=== PATIENT | female | born 1945 | race Caucasian/White ===

== ENCOUNTER 2017-06-03 18:34 | Outpatient (CLI) | payer MEDICARE | END 2017-06-03 18:35 | disposition short-term general hospital (02) | LOC: EMS 18:34 | PROVIDERS: ATTEND Surgery | DX: R07.89 Other chest pain (principal); R68.84 Jaw pain | CPT/HCPCS: A0170; A0425; A0427 ==

== ENCOUNTER 2017-09-16 08:00 | Outpatient (CLI) | payer MEDICARE | END 2017-09-16 08:01 | disposition home or self-care (01) | LOC: LAB.F 08:00 | PROVIDERS: ATTEND Nurse Practitioner Family | DX: I48.91 Unspecified atrial fibrillation (principal) | CPT/HCPCS: 85610 ==

== ENCOUNTER 2017-09-23 11:19 | Outpatient (CLI) | payer MEDICARE | END 2017-09-23 11:20 | disposition home or self-care (01) | LOC: LAB.F 11:19 | PROVIDERS: ATTEND Nurse Practitioner Family | DX: I48.91 Unspecified atrial fibrillation (principal) | CPT/HCPCS: 85610 ==

== ENCOUNTER 2017-09-30 09:23 | Outpatient (CLI) | payer MEDICARE | END 2017-09-30 09:24 | disposition home or self-care (01) | LOC: LAB.F 09:23 | PROVIDERS: ATTEND Nurse Practitioner Family | DX: I48.91 Unspecified atrial fibrillation (principal) | CPT/HCPCS: 85610 ==

== ENCOUNTER 2017-10-02 10:50 | Outpatient (CLI) | payer MEDICARE | END 2017-10-02 10:51 | disposition home or self-care (01) | LOC: LAB.F 10:50 | PROVIDERS: ATTEND Nurse Practitioner Family | DX: I48.91 Unspecified atrial fibrillation (principal) | CPT/HCPCS: 85610 ==

== ENCOUNTER 2017-10-13 08:00 | Outpatient (CLI) | payer MEDICARE | END 2017-10-13 08:01 | disposition home or self-care (01) | LOC: LAB.F 08:00 | PROVIDERS: ATTEND Internal Medicine | DX: I48.91 Unspecified atrial fibrillation (principal) | CPT/HCPCS: 85610 ==

== ENCOUNTER 2017-10-29 09:40 | Outpatient (CLI) | payer MEDICARE | END 2017-10-29 09:41 | disposition home or self-care (01) | LOC: LAB.F 09:40 | PROVIDERS: ATTEND Physician Assistant Medical | DX: I48.91 Unspecified atrial fibrillation (principal) | CPT/HCPCS: 85610 ==

== ENCOUNTER 2017-11-04 12:24 | Outpatient (CLI) | payer MEDICARE | END 2017-11-04 12:25 | disposition home or self-care (01) | LOC: LAB.F 12:24 | PROVIDERS: ATTEND Nurse Practitioner Family | DX: I48.91 Unspecified atrial fibrillation (principal) | CPT/HCPCS: 85610 ==

== ENCOUNTER 2017-11-07 14:22 | Outpatient (CLI) | payer MEDICARE | END 2017-11-07 14:23 | disposition home or self-care (01) | LOC: LAB.F 14:22 | PROVIDERS: ATTEND Nurse Practitioner Family | DX: I48.91 Unspecified atrial fibrillation (principal) | CPT/HCPCS: 85610 ==

== ENCOUNTER 2017-11-12 10:14 | Outpatient (CLI) | payer MEDICARE | END 2017-11-12 10:15 | disposition home or self-care (01) | LOC: LAB.F 10:14 | PROVIDERS: ATTEND Nurse Practitioner Family | DX: I48.91 Unspecified atrial fibrillation (principal) | CPT/HCPCS: 85610 ==

== ENCOUNTER 2017-11-20 11:26 | Outpatient (CLI) | payer MEDICARE | END 2017-11-20 11:27 | disposition home or self-care (01) | LOC: LAB.F 11:26 | PROVIDERS: ATTEND Nurse Practitioner Family | DX: I48.91 Unspecified atrial fibrillation (principal) | CPT/HCPCS: 85610 ==

== ENCOUNTER 2017-11-28 09:21 | Outpatient (CLI) | payer MEDICARE | END 2017-11-28 09:22 | disposition home or self-care (01) | LOC: LAB.F 09:21 | PROVIDERS: ATTEND Nurse Practitioner Family | DX: I48.91 Unspecified atrial fibrillation (principal) | CPT/HCPCS: 85610 ==

== ENCOUNTER 2017-12-05 11:13 | Outpatient (CLI) | payer MEDICARE | END 2017-12-05 11:14 | disposition home or self-care (01) | LOC: LAB.F 11:13 | PROVIDERS: ATTEND Nurse Practitioner Family | DX: I48.91 Unspecified atrial fibrillation (principal) | CPT/HCPCS: 85610 ==

== ENCOUNTER 2017-12-15 10:20 | Outpatient (CLI) | payer MEDICARE | END 2017-12-15 10:21 | disposition home or self-care (01) | LOC: LAB.F 10:20 | PROVIDERS: ATTEND Nurse Practitioner Family | DX: I48.91 Unspecified atrial fibrillation (principal) | CPT/HCPCS: 85610 ==

== ENCOUNTER 2017-12-24 09:50 | Outpatient (CLI) | payer MEDICARE | END 2017-12-24 09:51 | disposition home or self-care (01) | LOC: LAB.F 09:50 | PROVIDERS: ATTEND Nurse Practitioner Family | DX: I48.91 Unspecified atrial fibrillation (principal) | CPT/HCPCS: 85610 ==

== ENCOUNTER 2018-01-16 09:26 | Outpatient (CLI) | payer MEDICARE | END 2018-01-16 09:27 | disposition home or self-care (01) | LOC: LAB.F 09:26 | PROVIDERS: ATTEND Nurse Practitioner Family | DX: I48.91 Unspecified atrial fibrillation (principal) | CPT/HCPCS: 85610 ==

== ENCOUNTER 2018-02-09 11:18 | Outpatient (CLI) | payer MEDICARE | END 2018-02-09 11:19 | disposition home or self-care (01) | LOC: LAB.F 11:18 | PROVIDERS: ATTEND Nurse Practitioner Family | DX: I48.91 Unspecified atrial fibrillation (principal) | CPT/HCPCS: 85610 ==

== ENCOUNTER 2018-02-27 10:36 | Outpatient (CLI) | payer MEDICARE | END 2018-02-27 10:37 | disposition home or self-care (01) | LOC: LAB.F 10:36 | PROVIDERS: ATTEND Nurse Practitioner Family | DX: I48.91 Unspecified atrial fibrillation (principal) | CPT/HCPCS: 85610 ==

== ENCOUNTER 2018-03-23 10:58 | Outpatient (CLI) | payer MEDICARE | END 2018-03-23 10:59 | disposition home or self-care (01) | LOC: LAB.F 10:58 | PROVIDERS: ATTEND Nurse Practitioner Family | DX: I48.91 Unspecified atrial fibrillation (principal) | CPT/HCPCS: 85610 ==

== ENCOUNTER 2018-04-09 10:53 | Outpatient (CLI) | payer MEDICARE | END 2018-04-09 10:54 | disposition home or self-care (01) | LOC: LAB.F 10:53 | PROVIDERS: ATTEND Nurse Practitioner Family | DX: I48.91 Unspecified atrial fibrillation (principal) | CPT/HCPCS: 85610 ==

== ENCOUNTER 2018-05-11 11:57 | Outpatient (CLI) | payer MEDICARE | END 2018-05-11 11:58 | disposition home or self-care (01) | LOC: LAB.F 11:57 | PROVIDERS: ATTEND Nurse Practitioner Family | DX: I48.91 Unspecified atrial fibrillation (principal) | CPT/HCPCS: 85610 ==

== ENCOUNTER 2018-06-02 14:42 | Outpatient (CLI) | payer MEDICARE | END 2018-06-02 14:43 | disposition home or self-care (01) | LOC: LAB.F 14:42 | PROVIDERS: ATTEND Nurse Practitioner Family | DX: I48.91 Unspecified atrial fibrillation (principal) | CPT/HCPCS: 85610 ==

== ENCOUNTER 2018-06-30 08:00 | Outpatient (CLI) | payer MEDICARE | END 2018-06-30 23:59 | disposition home or self-care (01) | LOC: LAB.F 08:00 | PROVIDERS: ATTEND Nurse Practitioner Family | DX: I48.91 Unspecified atrial fibrillation (principal) | CPT/HCPCS: 85610 ==

== ENCOUNTER 2018-07-31 10:42 | Outpatient (CLI) | payer MEDICARE | END 2018-07-31 10:43 | disposition home or self-care (01) | LOC: LAB.F 10:42 | PROVIDERS: ATTEND Nurse Practitioner Family | DX: I48.91 Unspecified atrial fibrillation (principal) | CPT/HCPCS: 85610 ==

== ENCOUNTER 2018-08-28 10:50 | Outpatient (CLI) | payer MEDICARE | END 2018-08-28 10:51 | disposition home or self-care (01) | LOC: LAB.F 10:50 | PROVIDERS: ATTEND Nurse Practitioner Family | DX: I48.91 Unspecified atrial fibrillation (principal) | CPT/HCPCS: 85610 ==

== ENCOUNTER 2018-09-17 09:05 | Outpatient (CLI) | payer MEDICARE | END 2018-09-17 09:06 | disposition home or self-care (01) | LOC: LAB.F 09:05 | PROVIDERS: ATTEND Nurse Practitioner Family | DX: I48.91 Unspecified atrial fibrillation (principal) | CPT/HCPCS: 85610 ==

== ENCOUNTER 2018-10-08 12:10 | Outpatient (CLI) | payer MEDICARE | END 2018-10-08 23:59 | disposition home or self-care (01) | LOC: LAB.F 12:10 | PROVIDERS: ATTEND Nurse Practitioner Family | DX: I48.91 Unspecified atrial fibrillation (principal) | CPT/HCPCS: 85610 ==

== ENCOUNTER 2018-11-10 12:28 | Outpatient (CLI) | payer MEDICARE | END 2018-11-10 23:59 | disposition home or self-care (01) | LOC: LAB.F 12:28 | PROVIDERS: ATTEND Physician Assistant Medical | DX: I48.91 Unspecified atrial fibrillation (principal) | CPT/HCPCS: 85610 ==

== ENCOUNTER 2018-12-10 10:54 | Outpatient (CLI) | payer MEDICARE | END 2018-12-10 10:55 | disposition home or self-care (01) | LOC: LAB.F 10:54 | PROVIDERS: ATTEND Nurse Practitioner Family | DX: I48.91 Unspecified atrial fibrillation (principal) | CPT/HCPCS: 85610 ==

== ENCOUNTER 2018-12-24 12:09 | Outpatient (CLI) | payer MEDICARE | END 2018-12-24 12:10 | disposition home or self-care (01) | LOC: LAB.S 12:09 | PROVIDERS: ATTEND Internal Medicine | DX: I48.91 Unspecified atrial fibrillation (principal) | CPT/HCPCS: 85610 ==

== ENCOUNTER 2019-01-26 12:02 | Outpatient (CLI) | payer MEDICARE | END 2019-01-26 12:03 | disposition home or self-care (01) | LOC: LAB.S 12:02 | PROVIDERS: ATTEND Nurse Practitioner Family | DX: I48.91 Unspecified atrial fibrillation (principal) | CPT/HCPCS: 85610 ==

== ENCOUNTER 2019-02-09 13:13 | Outpatient (CLI) | payer MEDICARE | END 2019-02-09 13:14 | disposition home or self-care (01) | LOC: LAB.S 13:13 | PROVIDERS: ATTEND Nurse Practitioner Family | DX: I48.91 Unspecified atrial fibrillation (principal) | CPT/HCPCS: 85610 ==

== ENCOUNTER 2019-03-12 13:23 | Outpatient (CLI) | payer MEDICARE | END 2019-03-12 13:24 | disposition home or self-care (01) | LOC: LAB.S 13:23 | PROVIDERS: ATTEND Nurse Practitioner Family | DX: I48.91 Unspecified atrial fibrillation (principal) | CPT/HCPCS: 85610 ==

== ENCOUNTER 2019-03-26 13:28 | Outpatient (CLI) | payer MEDICARE | END 2019-03-26 13:29 | disposition home or self-care (01) | LOC: LAB.S 13:28 | PROVIDERS: ATTEND Nurse Practitioner Family | DX: I48.91 Unspecified atrial fibrillation (principal) | CPT/HCPCS: 85610 ==

== ENCOUNTER 2019-04-13 11:51 | Outpatient (CLI) | payer MEDICARE | END 2019-04-13 11:52 | disposition home or self-care (01) | LOC: LAB.S 11:51 | PROVIDERS: ATTEND Internal Medicine | DX: I48.91 Unspecified atrial fibrillation (principal) | CPT/HCPCS: 85610 ==

== ENCOUNTER 2019-04-30 11:51 | Outpatient (CLI) | payer MEDICARE | END 2019-04-30 11:52 | disposition home or self-care (01) | LOC: LAB.S 11:51 | PROVIDERS: ATTEND Nurse Practitioner Family | DX: I48.91 Unspecified atrial fibrillation (principal) | CPT/HCPCS: 85610 ==

== ENCOUNTER 2019-05-19 11:42 | Outpatient (CLI) | payer MEDICARE | END 2019-05-19 11:43 | disposition home or self-care (01) | LOC: LAB.S 11:42 | PROVIDERS: ATTEND Nurse Practitioner Family | DX: I48.91 Unspecified atrial fibrillation (principal) | CPT/HCPCS: 85610 ==

== ENCOUNTER 2019-06-02 11:43 | Outpatient (CLI) | payer MEDICARE | END 2019-06-02 11:44 | disposition home or self-care (01) | LOC: LAB.S 11:43 | PROVIDERS: ATTEND Nurse Practitioner Family | DX: I48.91 Unspecified atrial fibrillation (principal) | CPT/HCPCS: 85610 ==

== ENCOUNTER 2019-06-18 13:18 | Outpatient (CLI) | payer MEDICARE | END 2019-06-18 13:19 | disposition home or self-care (01) | LOC: LAB.S 13:18 | PROVIDERS: ATTEND Nurse Practitioner Family | DX: I48.91 Unspecified atrial fibrillation (principal) | CPT/HCPCS: 85610 ==

== ENCOUNTER 2019-07-09 14:44 | Outpatient (CLI) | payer MEDICARE | END 2019-07-09 14:45 | disposition home or self-care (01) | LOC: LAB.S 14:44 | PROVIDERS: ATTEND Internal Medicine | DX: I48.91 Unspecified atrial fibrillation (principal) | CPT/HCPCS: 85610 ==

== ENCOUNTER 2019-08-02 14:27 | Outpatient (CLI) | payer MEDICARE | END 2019-08-02 14:28 | disposition home or self-care (01) | LOC: LAB.S 14:27 | PROVIDERS: ATTEND Internal Medicine | DX: I48.91 Unspecified atrial fibrillation (principal) | CPT/HCPCS: 85610 ==

== ENCOUNTER 2019-09-01 14:06 | Outpatient (CLI) | payer MEDICARE | END 2019-09-01 14:07 | disposition home or self-care (01) | LOC: LAB.S 14:06 | PROVIDERS: ATTEND Internal Medicine | DX: I48.91 Unspecified atrial fibrillation (principal) | CPT/HCPCS: 85610 ==

== ENCOUNTER 2019-10-07 12:51 | Outpatient (CLI) | payer MEDICARE | END 2019-10-07 12:52 | disposition home or self-care (01) | LOC: LAB 12:51 | PROVIDERS: ATTEND Internal Medicine | DX: I48.91 Unspecified atrial fibrillation (principal) | CPT/HCPCS: 85610 ==

== ENCOUNTER 2019-11-04 13:55 | Outpatient (CLI) | payer MEDICARE | END 2019-11-04 13:56 | disposition home or self-care (01) | LOC: LAB 13:55 | PROVIDERS: ATTEND Internal Medicine | DX: I48.91 Unspecified atrial fibrillation (principal) | CPT/HCPCS: 85610 ==

== ENCOUNTER 2019-11-19 11:07 | Outpatient (CLI) | payer MEDICARE | END 2019-11-19 11:08 | disposition home or self-care (01) | LOC: LAB 11:07 | PROVIDERS: ATTEND Internal Medicine | DX: I48.91 Unspecified atrial fibrillation (principal) | CPT/HCPCS: 85610 ==

== ENCOUNTER 2019-12-10 11:23 | Outpatient (CLI) | payer MEDICARE | END 2019-12-10 11:24 | disposition home or self-care (01) | LOC: LAB.S 11:23 | PROVIDERS: ATTEND Internal Medicine | DX: I48.91 Unspecified atrial fibrillation (principal) | CPT/HCPCS: 85610 ==

== ENCOUNTER 2019-12-30 11:38 | Outpatient (CLI) | payer MEDICARE ==
[2019-12-30 15:40] LABS: CALCIUM 8.9 mg/dL (8.5-10.3)
== END 2019-12-30 11:39 | disposition home or self-care (01) ==
LOC: LAB.S 11:38
PROVIDERS: ATTEND Internal Medicine
DX: I10 Essential (primary) hypertension (principal)
CPT/HCPCS: 36415; 80048

== ENCOUNTER 2020-02-07 11:04 | Outpatient (CLI) | payer MEDICARE | END 2020-02-07 11:05 | disposition home or self-care (01) | LOC: LAB.S 11:04 | PROVIDERS: ATTEND Internal Medicine | DX: I48.91 Unspecified atrial fibrillation (principal) | CPT/HCPCS: 85610 ==

== ENCOUNTER 2020-03-07 10:05 | Outpatient (CLI) | payer MEDICARE | END 2020-03-07 10:06 | disposition home or self-care (01) | LOC: LAB.S 10:05 | PROVIDERS: ATTEND Internal Medicine | DX: I48.91 Unspecified atrial fibrillation (principal) | CPT/HCPCS: 85610 ==

== ENCOUNTER 2020-04-04 11:40 | Outpatient (CLI) | payer MEDICARE | END 2020-04-04 11:41 | disposition home or self-care (01) | LOC: LAB.S 11:40 | PROVIDERS: ATTEND Internal Medicine | DX: I48.91 Unspecified atrial fibrillation (principal) | CPT/HCPCS: 85610 ==

== ENCOUNTER 2020-05-02 11:24 | Outpatient (CLI) | payer MEDICARE | END 2020-05-02 11:25 | disposition home or self-care (01) | LOC: LAB.S 11:24 | PROVIDERS: ATTEND Internal Medicine | DX: I48.91 Unspecified atrial fibrillation (principal) | CPT/HCPCS: 85610 ==

== ENCOUNTER 2020-05-23 13:36 | Outpatient (CLI) | payer MEDICARE | END 2020-05-23 13:37 | disposition home or self-care (01) | LOC: LAB.S 13:36 | PROVIDERS: ATTEND Internal Medicine | DX: I48.91 Unspecified atrial fibrillation (principal) | CPT/HCPCS: 85610 ==

== ENCOUNTER 2020-07-18 15:36 | Outpatient (CLI) | payer MEDICARE | END 2020-07-18 15:37 | disposition home or self-care (01) | LOC: LAB.S 15:36 | PROVIDERS: ATTEND Internal Medicine | DX: I48.91 Unspecified atrial fibrillation (principal) | CPT/HCPCS: 85610 ==

== ENCOUNTER 2020-08-08 11:17 | Outpatient (CLI) | payer MEDICARE | END 2020-08-08 11:18 | disposition home or self-care (01) | LOC: LAB.S 11:17 | PROVIDERS: ATTEND Internal Medicine | DX: I48.91 Unspecified atrial fibrillation (principal) | CPT/HCPCS: 85610 ==

== ENCOUNTER 2020-08-31 10:44 | Outpatient (CLI) | payer MEDICARE | END 2020-08-31 10:45 | disposition home or self-care (01) | LOC: LAB.S 10:44 | PROVIDERS: ATTEND Internal Medicine | DX: Z51.81 Encounter for therapeutic drug level monitoring (principal); Z79.899 Other long term (current) drug therapy | CPT/HCPCS: 85610 ==

== ENCOUNTER 2020-10-03 11:57 | Outpatient (CLI) | payer MEDICARE | END 2020-10-03 11:58 | disposition home or self-care (01) | LOC: LAB.S 11:57 | PROVIDERS: ATTEND Internal Medicine | DX: Z51.81 Encounter for therapeutic drug level monitoring (principal); Z79.01 Long term (current) use of anticoagulants | CPT/HCPCS: 85610 ==

== ENCOUNTER 2020-10-17 13:18 | Outpatient (CLI) | payer MEDICARE | END 2020-10-17 13:19 | disposition home or self-care (01) | LOC: LAB.S 13:18 | PROVIDERS: ATTEND Internal Medicine | DX: Z51.81 Encounter for therapeutic drug level monitoring (principal); Z79.01 Long term (current) use of anticoagulants | CPT/HCPCS: 36416; 85610 ==

== ENCOUNTER 2020-10-23 13:02 | Outpatient (CLI) | payer MEDICARE | END 2020-10-23 13:03 | disposition home or self-care (01) | LOC: LAB.S 13:02 | PROVIDERS: ATTEND Ophthalmology | DX: Z79.01 Long term (current) use of anticoagulants (principal) | CPT/HCPCS: 36416; 85610 ==

== ENCOUNTER 2020-11-14 11:08 | Outpatient (CLI) | payer MEDICARE | END 2020-11-14 11:09 | disposition home or self-care (01) | LOC: LAB.S 11:08 | PROVIDERS: ATTEND Internal Medicine | DX: Z51.81 Encounter for therapeutic drug level monitoring (principal); Z79.01 Long term (current) use of anticoagulants | CPT/HCPCS: 36416; 85610 ==

== ENCOUNTER 2020-12-12 11:44 | Outpatient (CLI) | payer MEDICARE | END 2020-12-12 11:45 | disposition home or self-care (01) | LOC: LAB.S 11:44 | PROVIDERS: ATTEND Internal Medicine | DX: Z51.81 Encounter for therapeutic drug level monitoring (principal); Z79.01 Long term (current) use of anticoagulants | CPT/HCPCS: 36416; 85610 ==

== ENCOUNTER 2021-01-09 12:01 | Outpatient (CLI) | payer MEDICARE | END 2021-01-09 12:02 | disposition home or self-care (01) | LOC: LAB.S 12:01 | PROVIDERS: ATTEND Internal Medicine | DX: Z51.81 Encounter for therapeutic drug level monitoring (principal); Z79.01 Long term (current) use of anticoagulants | CPT/HCPCS: 36416; 85610 ==

== ENCOUNTER 2021-02-07 11:19 | Outpatient (CLI) | payer MEDICARE | END 2021-02-07 11:20 | disposition home or self-care (01) | LOC: LAB.S 11:19 | PROVIDERS: ATTEND Internal Medicine | DX: Z51.81 Encounter for therapeutic drug level monitoring (principal); Z79.01 Long term (current) use of anticoagulants | CPT/HCPCS: 36416; 85610 ==

== ENCOUNTER 2021-03-08 11:37 | Outpatient (CLI) | payer MEDICARE | END 2021-03-08 11:38 | disposition home or self-care (01) | LOC: LAB.S 11:37 | PROVIDERS: ATTEND Internal Medicine | DX: Z51.81 Encounter for therapeutic drug level monitoring (principal); Z79.01 Long term (current) use of anticoagulants | CPT/HCPCS: 36416; 85610 ==

== ENCOUNTER 2021-03-22 14:09 | Outpatient (CLI) | payer MEDICARE | END 2021-03-22 14:10 | disposition home or self-care (01) | LOC: LAB.S 14:09 | PROVIDERS: ATTEND Internal Medicine | DX: Z51.81 Encounter for therapeutic drug level monitoring (principal); Z79.01 Long term (current) use of anticoagulants | CPT/HCPCS: 36416; 85610 ==

== ENCOUNTER 2021-04-13 15:37 | Outpatient (CLI) | payer MEDICARE | END 2021-04-13 15:38 | disposition home or self-care (01) | LOC: LAB.S 15:37 | PROVIDERS: ATTEND Internal Medicine | DX: Z51.81 Encounter for therapeutic drug level monitoring (principal); Z79.01 Long term (current) use of anticoagulants | CPT/HCPCS: 36416; 85610 ==

== ENCOUNTER 2021-05-02 15:14 | Outpatient (CLI) | payer MEDICARE | END 2021-05-02 15:15 | disposition home or self-care (01) | LOC: LAB.S 15:14 | PROVIDERS: ATTEND Internal Medicine | DX: Z51.81 Encounter for therapeutic drug level monitoring (principal); Z79.01 Long term (current) use of anticoagulants | CPT/HCPCS: 36416; 85610 ==

== ENCOUNTER 2021-05-17 10:38 | Outpatient (CLI) | payer MEDICARE | END 2021-05-17 10:39 | disposition home or self-care (01) | LOC: LAB.S 10:38 | PROVIDERS: ATTEND Internal Medicine | DX: Z51.81 Encounter for therapeutic drug level monitoring (principal); Z79.01 Long term (current) use of anticoagulants | CPT/HCPCS: 36416; 85610 ==

== ENCOUNTER 2021-05-30 14:29 | Outpatient (CLI) | payer MEDICARE | END 2021-05-30 14:30 | disposition home or self-care (01) | LOC: LAB.S 14:29 | PROVIDERS: ATTEND Internal Medicine | DX: Z51.81 Encounter for therapeutic drug level monitoring (principal); Z79.01 Long term (current) use of anticoagulants | CPT/HCPCS: 36416; 85610 ==

== ENCOUNTER 2021-06-19 13:39 | Outpatient (CLI) | payer MEDICARE | END 2021-06-19 13:40 | disposition home or self-care (01) | LOC: LAB.S 13:39 | PROVIDERS: ATTEND Internal Medicine | DX: Z51.81 Encounter for therapeutic drug level monitoring (principal); Z79.01 Long term (current) use of anticoagulants | CPT/HCPCS: 36416; 85610 ==

== ENCOUNTER 2021-07-17 11:56 | Outpatient (CLI) | payer MEDICARE | END 2021-07-17 11:57 | disposition home or self-care (01) | LOC: LAB.S 11:56 | PROVIDERS: ATTEND Internal Medicine | DX: Z51.81 Encounter for therapeutic drug level monitoring (principal); Z79.01 Long term (current) use of anticoagulants | CPT/HCPCS: 36416; 85610 ==

== ENCOUNTER 2021-08-14 11:20 | Outpatient (CLI) | payer MEDICARE | END 2021-08-14 11:21 | disposition home or self-care (01) | LOC: LAB.S 11:20 | PROVIDERS: ATTEND Internal Medicine | DX: Z51.81 Encounter for therapeutic drug level monitoring (principal); Z79.01 Long term (current) use of anticoagulants | CPT/HCPCS: 36416; 85610 ==

== ENCOUNTER 2021-09-25 10:29 | Outpatient (CLI) | payer MEDICARE | END 2021-09-25 10:30 | disposition home or self-care (01) | LOC: LAB.S 10:29 | PROVIDERS: ATTEND Internal Medicine | DX: Z51.81 Encounter for therapeutic drug level monitoring (principal); Z79.01 Long term (current) use of anticoagulants | CPT/HCPCS: 36416; 85610 ==

== ENCOUNTER 2021-11-06 13:58 | Outpatient (CLI) | payer MEDICARE | END 2021-11-06 13:59 | disposition home or self-care (01) | LOC: LAB.S 13:58 | PROVIDERS: ATTEND Internal Medicine | DX: Z51.81 Encounter for therapeutic drug level monitoring (principal); Z79.01 Long term (current) use of anticoagulants | CPT/HCPCS: 36416; 85610 ==

== ENCOUNTER 2021-12-24 10:41 | Outpatient (CLI) | payer MEDICARE | END 2021-12-24 10:42 | disposition home or self-care (01) | LOC: LAB.S 10:41 | PROVIDERS: ATTEND Internal Medicine | DX: Z51.81 Encounter for therapeutic drug level monitoring (principal); Z79.01 Long term (current) use of anticoagulants | CPT/HCPCS: 36416; 85610 ==

== ENCOUNTER 2022-02-21 12:01 | Outpatient (CLI) | payer MEDICARE | END 2022-02-21 12:02 | disposition home or self-care (01) | LOC: LAB.S 12:01 | PROVIDERS: ATTEND Internal Medicine | DX: Z51.81 Encounter for therapeutic drug level monitoring (principal); Z79.01 Long term (current) use of anticoagulants | CPT/HCPCS: 36416; 85610 ==

== ENCOUNTER 2022-03-20 11:18 | Outpatient (CLI) | payer MEDICARE | END 2022-03-20 11:19 | disposition home or self-care (01) | LOC: LAB.S 11:18 | PROVIDERS: ATTEND Internal Medicine | DX: Z51.81 Encounter for therapeutic drug level monitoring (principal); Z79.01 Long term (current) use of anticoagulants | CPT/HCPCS: 36416; 85610 ==

== ENCOUNTER 2022-06-14 12:58 | Outpatient (CLI) | payer MEDICARE | END 2022-06-14 12:59 | disposition home or self-care (01) | LOC: LAB.S 12:58 | PROVIDERS: ATTEND Internal Medicine | DX: Z51.81 Encounter for therapeutic drug level monitoring (principal); Z79.01 Long term (current) use of anticoagulants | CPT/HCPCS: 36416; 85610 ==

== ENCOUNTER 2022-07-23 12:49 | Outpatient (CLI) | payer MEDICARE | END 2022-07-23 12:50 | disposition home or self-care (01) | LOC: LAB.S 12:49 | PROVIDERS: ATTEND Internal Medicine | DX: Z51.81 Encounter for therapeutic drug level monitoring (principal); Z79.01 Long term (current) use of anticoagulants | CPT/HCPCS: 36416; 85610 ==

== ENCOUNTER 2022-08-06 13:30 | Outpatient (CLI) | payer MEDICARE | END 2022-08-06 13:31 | disposition home or self-care (01) | LOC: LAB.S 13:30 | PROVIDERS: ATTEND Internal Medicine | DX: Z51.81 Encounter for therapeutic drug level monitoring (principal); Z79.01 Long term (current) use of anticoagulants | CPT/HCPCS: 36416; 85610 ==

== ENCOUNTER 2022-09-04 11:52 | Outpatient (CLI) | payer MEDICARE | END 2022-09-04 11:53 | disposition home or self-care (01) | LOC: LAB.S 11:52 | PROVIDERS: ATTEND Internal Medicine | DX: Z51.81 Encounter for therapeutic drug level monitoring (principal); Z79.01 Long term (current) use of anticoagulants | CPT/HCPCS: 36416; 85610 ==

== ENCOUNTER 2022-10-02 13:03 | Outpatient (CLI) | payer MEDICARE ==
[2022-10-02 14:38] LABS: BASOPHILS # (AUTO) 0.1 10^3/uL (0.0-0.1); BASOPHILS % (AUTO) 0.7 %; EOSINOPHILS # (AUTO) 0.2 10^3/uL (0.0-0.7); HCT - HEMATOCRIT 40.2 % (37.0-47.0); HGB - HEMOGLOBIN 13.4 g/dL (12.0-16.0); LYMPHOCYTES # (AUTO) 1.6 10^3/uL (1.5-3.5); MEAN CORPUSCULAR HGB CONC 33.3 g/dL (32.0-36.0); MEAN CORPUSCULAR VOLUME 89.9 fL (81.0-99.0); MEAN PLATELET VOLUME 11.1 fL (7.9-10.8); MONOCYTES # (AUTO) 0.5 10^3/uL (0.0-1.0); MONOCYTES % (AUTO) 7.3 %; NEUTROPHILS # (AUTO) 4.7 10^3/uL (1.5-6.6); NEUTROPHILS % (AUTO) 65.6 %; PLT - PLATELET COUNT 189 10^3/uL (130-450); RED BLOOD COUNT 4.47 10^6/uL (4.20-5.40); RED CELL DISTRIBUTION WIDTH 13.2 % (12.0-15.0); WHITE BLOOD COUNT 7.1 x10^3/uL (4.8-10.8)
[2022-10-02 14:46] LABS: INR 3.1 (0.8-1.2)
== END 2022-10-02 13:04 | disposition home or self-care (01) ==
LOC: LAB.S 13:03
PROVIDERS: ATTEND Internal Medicine
DX: Z51.81 Encounter for therapeutic drug level monitoring (principal); Z79.01 Long term (current) use of anticoagulants; I48.91 Unspecified atrial fibrillation
CPT/HCPCS: 36415; 85025; 85610

== ENCOUNTER 2022-11-12 11:51 | Outpatient (CLI) | payer MEDICARE ==
[2022-11-12 14:10] LABS: BASOPHILS # (AUTO) 0.1 10^3/uL (0.0-0.1); BASOPHILS % (AUTO) 0.7 %; EOSINOPHILS # (AUTO) 0.2 10^3/uL (0.0-0.7); HCT - HEMATOCRIT 40.4 % (37.0-47.0); HGB - HEMOGLOBIN 13.7 g/dL (12.0-16.0); LYMPHOCYTES # (AUTO) 1.6 10^3/uL (1.5-3.5); LYMPHOCYTES % (AUTO) 23.5 %; MEAN CORPUSCULAR HEMOGLOBIN 30.4 pg (27.0-31.0); MEAN CORPUSCULAR HGB CONC 33.9 g/dL (32.0-36.0); MEAN CORPUSCULAR VOLUME 89.8 fL (81.0-99.0); MEAN PLATELET VOLUME 11.5 fL (7.9-10.8); MONOCYTES # (AUTO) 0.6 10^3/uL (0.0-1.0); MONOCYTES % (AUTO) 9.5 %; NEUTROPHILS # (AUTO) 4.3 10^3/uL (1.5-6.6); NEUTROPHILS % (AUTO) 62.9 %; PLT - PLATELET COUNT 186 10^3/uL (130-450); RED CELL DISTRIBUTION WIDTH 12.8 % (12.0-15.0); WHITE BLOOD COUNT 6.8 x10^3/uL (4.8-10.8)
== END 2022-11-12 11:52 | disposition home or self-care (01) ==
LOC: LAB.S 11:51
PROVIDERS: ATTEND Internal Medicine
DX: Z51.81 Encounter for therapeutic drug level monitoring (principal); Z79.01 Long term (current) use of anticoagulants; I48.91 Unspecified atrial fibrillation
CPT/HCPCS: 36415; 85025; 85610

== ENCOUNTER 2022-11-22 16:15 | Emergency (ER) | payer MEDICARE ==
[2022-11-22] MEDS ORDERED: SODIUM CHLORIDE 0.9% 1,000 ML IV STA (16:28)
[2022-11-22] MEDS ORDERED: ADENOSINE 6 MG/2 ML VIAL IVP STA (16:28)
[2022-11-22] MEDS ORDERED: ADENOSINE 6 MG/2 ML VIAL IVP ONE (16:30)
--- NOTE | 2022-11-22 16:30 | ED Physician Documentation ---
PD HPI CHEST PAIN - Stated complaint Stated Complaint: CHEST PX/SOA - Chief complaint Chief Complaint: Cardiac - History obtained from History obtained from: Patient, Family - Additional information Additional information: 77-year-old woman with history of coronary disease, had her first WA in 2013 and another couple years later. Then have three-vessel CABG in 2018. Perioperatively had atrial fibrillation and is currently still maintained on warfarin for same. About half an hour ago she started to feel painless rapid palpitations and breathlessness. No pedal edema or calf pain. PD PAST MEDICAL HISTORY - Past Medical History Past Medical History: Yes Cardiovascular: [place], Atrial fibrillation - Past Surgical History Past Surgical History: Yes Cardiovascular: CABG - Allergies Allergies/Adverse Reactions: Allergies Allergy/AdvReac Type Severity Reaction Status Date / Time No Known Drug Allergies Allergy Verified 11/22/22 16:24 - Living Situation Living Situation: reports: With family PD ED PE NORMAL - Vitals Vital signs reviewed: Yes - General General: Alert and oriented X 3, No acute distress - Cardiac Cardiac: Other (Rapid regular rhythm without murmur) - Respiratory Respiratory: No respiratory distress, Clear bilaterally - Abdomen Abdomen: Normal bowel sounds, Soft, Non tender - Extremities Extremities: No edema, No calf tenderness / cord - Neuro Neuro: Alert and oriented X 3, Normal speech Results - Vitals Vitals: Vital Signs - 24 hr 11/22/22 11/22/22 11/22/22 16:21 16:40 17:20 Temperature 36.5 C Heart Rate 156 H 83 77 Respiratory 20 20 20 Rate Blood Pressure 194/136 H 203/93 H 198/86 H O2 Saturation 97 95 97 Oxygen O2 Source Room air - EKG (time done) 1619 EKG releavant findings:: EKG personally interpreted by author of this note. Relevant findings are: Rate: Rate (enter#) (150) Rhythm: Other (SVT, given the rate and regularity presume atrial flutter.) QRS: LVH Ischemia: No: ST elevation c/w ischemia, ST elevation c/w repol, ST depression 1636 EKG releavant findings:: EKG personally interpreted by author of this note. Relevant findings are: Rate: Rate (enter#) (83) Rhythm: NSR, LAE Boaz: LAD Intervals: Normal DC Ischemia: Q waves (3/F, V1), Non specific changes Computer interpretation: Agree with computer - Labs Labs: Laboratory Tests 11/22/22 11/22/22 11/22/22 16:33 16:33 16:33 WBC 9.7 RBC 5.03 Hgb 14.8 Hct 44.2 MCV 87.9 MCH 29.4 MCHC 33.5 RDW 13.1 Plt Count 250 MPV 10.9 H Neut # (Auto) 6.4 Lymph # (Auto) 2.3 [place] # (Auto) 0.8 Eos # (Auto) 0.2 Baso # (Auto) 0.1 Absolute Nucleated RBC 0.00 Nucleated RBC % 0.0 PT INR Sodium 135 Potassium 4.0 Chloride 102 Carbon Dioxide 23 Anion Gap 10.0 BUN 25 H Creatinine 1.4 H Estimated GFR (MDRD) 36 L Glucose 324 H Calcium 8.8 Magnesium 2.2 Total Bilirubin 0.6 AST 17 ALT 23 Alkaline Phosphatase 114 Total Protein 7.4 Albumin 3.8 Globulin 3.6 Albumin/Globulin Ratio 1.1 TSH 1.82 11/22/22 16:57 WBC RBC Hgb Hct MCV MCH MCHC RDW Plt Count MPV Neut # (Auto) Lymph # (Auto) [place] # (Auto) Eos # (Auto) Baso # (Auto) Absolute Nucleated RBC Nucleated RBC % PT 34.1 H INR 3.3 H Sodium Potassium Chloride Carbon Dioxide Anion Gap BUN Creatinine Estimated GFR (MDRD) Glucose Calcium Magnesium Total Bilirubin AST ALT Alkaline Phosphatase Total Protein Albumin Globulin Albumin/Globulin Ratio TSH PD Medical Decision Making - ED course ED course: 77-year-old woman with history of coronary disease presents with painless rapid palpitations with a narrow complex regular tachycardia with a rate of 150. B ecause of the rate I presumed atrial flutter, and plan to give 6 mg of IV push adenosine to confirm flutter waves, 6 milligrams of IV push adenosine was given and she converted to normal sinus rhythm suggesting that this was actually a more classic SVT. Subsequently she was observed while labs were pending.. She felt back to normal and there was no chest pain or pressure. She remained in sinus rhythm. Lab work demonstrated a normal CBC. INR 3.3. Chemistry panel notable for depressed renal function with hyperglycemia. All of this was discussed with patient and family with follow-up advised. Departure - Departure Disposition: 01 Home, Self Care Clinical Impression: Supraventricular tachycardia Condition: Stable Instructions: ED Tachycardia Pat PSVT Comments: You are seen today for an episode of supraventricular tachycardia. We were able to convert this with a single dose of 6 mg of adenosine through your IV. We did notice on your labs that your blood sugar was 324. Also your creatinine was 1.4. This suggests some decreased renal function and potentially a concern for diabetes. Please mention this to your primary care physician, and make the next available appointment. You should also follow-up with your contact centre supervisor taking copies of the EKGs from both before and after the medication was given with you to that appointment. Your INR today was 3.3. Discharge Date/Time: 11/22/22 17:31
[2022-11-22 16:40] LABS: BASOPHILS # (AUTO) 0.1 10^3/uL (0.0-0.1); BASOPHILS % (AUTO) 0.5 %; EOSINOPHILS # (AUTO) 0.2 10^3/uL (0.0-0.7); HCT - HEMATOCRIT 44.2 % (37.0-47.0); HGB - HEMOGLOBIN 14.8 g/dL (12.0-16.0); LYMPHOCYTES # (AUTO) 2.3 10^3/uL (1.5-3.5); LYMPHOCYTES % (AUTO) 23.1 %; MEAN CORPUSCULAR HEMOGLOBIN 29.4 pg (27.0-31.0); MEAN CORPUSCULAR HGB CONC 33.5 g/dL (32.0-36.0); MEAN CORPUSCULAR VOLUME 87.9 fL (81.0-99.0); MEAN PLATELET VOLUME 10.9 fL (7.9-10.8); MONOCYTES # (AUTO) 0.8 10^3/uL (0.0-1.0); NEUTROPHILS # (AUTO) 6.4 10^3/uL (1.5-6.6); NEUTROPHILS % (AUTO) 66.1 %; PLT - PLATELET COUNT 250 10^3/uL (130-450); RED BLOOD COUNT 5.03 10^6/uL (4.20-5.40); RED CELL DISTRIBUTION WIDTH 13.1 % (12.0-15.0); WHITE BLOOD COUNT 9.7 x10^3/uL (4.8-10.8)
[2022-11-22 16:51] LABS: ALBUMIN 3.8 g/dL (3.2-5.5); ALBUMIN/GLOBULIN RATIO 1.1 (1.0-2.2); BILIRUBIN,TOTAL 0.6 mg/dL (0.2-1.0); CALCIUM 8.8 mg/dL (8.5-10.3); CREATININE 1.4 mg/dL (0.4-1.0); MAGNESIUM 2.2 mg/dL (1.7-2.8); TOTAL PROTEIN 7.4 g/dL (6.7-8.2)
[2022-11-22 17:08] LABS: INR 3.3 (0.8-1.2); PT - PROTHROMBIN TIME 34.1 secs (9.9-12.6)
[2022-11-22 17:22] VITALS: BP 198/86
== END 2022-11-22 17:31 | disposition home or self-care (01) ==
LOC: ED 16:15
DX: I47.1 Supraventricular tachycardia (principal); R73.9 Hyperglycemia, unspecified; R79.89 Other specified abnormal findings of blood chemistry
CPT/HCPCS: 36415; 80053; 83735; 84443; 85025; 85610; 93005; 96374; 99284; J0153

== ENCOUNTER 2022-11-28 13:02 | Outpatient (CLI) | payer MEDICARE | END 2022-11-28 13:03 | disposition home or self-care (01) | LOC: LAB.S 13:02 | PROVIDERS: ATTEND Internal Medicine | DX: Z51.81 Encounter for therapeutic drug level monitoring (principal); Z79.01 Long term (current) use of anticoagulants; I48.91 Unspecified atrial fibrillation | CPT/HCPCS: 36415; 36416; 85025; 85610 ==

== ENCOUNTER 2022-12-05 14:28 | Outpatient (CLI) | payer MEDICARE | END 2022-12-05 14:29 | disposition home or self-care (01) | LOC: LAB.S 14:28 | PROVIDERS: ATTEND Internal Medicine | DX: Z51.81 Encounter for therapeutic drug level monitoring (principal); Z79.01 Long term (current) use of anticoagulants; I48.91 Unspecified atrial fibrillation | CPT/HCPCS: 36416; 85610 ==

== ENCOUNTER 2023-01-22 12:29 | Outpatient (CLI) | payer MEDICARE | END 2023-01-22 12:30 | disposition home or self-care (01) | LOC: LAB.S 12:29 | PROVIDERS: ATTEND Internal Medicine | DX: Z51.81 Encounter for therapeutic drug level monitoring (principal); Z79.01 Long term (current) use of anticoagulants; I48.91 Unspecified atrial fibrillation | CPT/HCPCS: 36416; 85610 ==

== ENCOUNTER 2023-02-19 10:21 | Outpatient (CLI) | payer MEDICARE | END 2023-02-19 10:22 | disposition home or self-care (01) | LOC: LAB.S 10:21 | PROVIDERS: ATTEND Internal Medicine | DX: Z51.81 Encounter for therapeutic drug level monitoring (principal); Z79.01 Long term (current) use of anticoagulants; I48.91 Unspecified atrial fibrillation | CPT/HCPCS: 36416; 85610 ==

== ENCOUNTER 2023-03-18 12:56 | Outpatient (CLI) | payer MEDICARE | END 2023-03-18 12:57 | disposition home or self-care (01) | LOC: LAB.S 12:56 | PROVIDERS: ATTEND Internal Medicine | DX: Z51.81 Encounter for therapeutic drug level monitoring (principal); Z79.01 Long term (current) use of anticoagulants; I48.91 Unspecified atrial fibrillation | CPT/HCPCS: 36416; 85610 ==

== ENCOUNTER 2023-04-17 11:48 | Outpatient (CLI) | payer MEDICARE | END 2023-04-17 11:49 | disposition home or self-care (01) | LOC: LAB.S 11:48 | PROVIDERS: ATTEND Internal Medicine | DX: Z51.81 Encounter for therapeutic drug level monitoring (principal); Z79.01 Long term (current) use of anticoagulants; I48.91 Unspecified atrial fibrillation | CPT/HCPCS: 36416; 85610 ==

== ENCOUNTER 2023-05-19 10:21 | Outpatient (CLI) | payer MEDICARE | END 2023-05-19 10:22 | disposition home or self-care (01) | LOC: LAB.S 10:21 | PROVIDERS: ATTEND Internal Medicine | DX: Z51.81 Encounter for therapeutic drug level monitoring (principal); Z79.01 Long term (current) use of anticoagulants; I48.91 Unspecified atrial fibrillation | CPT/HCPCS: 36416; 85610 ==

== ENCOUNTER 2023-06-03 14:40 | Outpatient (CLI) | payer MEDICARE | END 2023-06-03 14:41 | disposition home or self-care (01) | LOC: LAB.S 14:40 | PROVIDERS: ATTEND Internal Medicine | DX: Z51.81 Encounter for therapeutic drug level monitoring (principal); Z79.01 Long term (current) use of anticoagulants; I48.91 Unspecified atrial fibrillation | CPT/HCPCS: 36416; 85610 ==

== ENCOUNTER 2023-07-01 11:19 | Outpatient (CLI) | payer MEDICARE | END 2023-07-01 11:20 | disposition home or self-care (01) | LOC: LAB.S 11:19 | PROVIDERS: ATTEND Internal Medicine | DX: Z51.81 Encounter for therapeutic drug level monitoring (principal); Z79.01 Long term (current) use of anticoagulants; I48.91 Unspecified atrial fibrillation | CPT/HCPCS: 36416; 85610 ==

== ENCOUNTER 2023-07-15 10:55 | Outpatient (CLI) | payer MEDICARE | END 2023-07-15 10:56 | disposition home or self-care (01) | LOC: LAB.S 10:55 | PROVIDERS: ATTEND Internal Medicine | DX: Z51.81 Encounter for therapeutic drug level monitoring (principal); Z79.01 Long term (current) use of anticoagulants; I48.91 Unspecified atrial fibrillation | CPT/HCPCS: 36415; 36416; 85025; 85610 ==

== ENCOUNTER 2023-07-29 12:02 | Outpatient (CLI) | payer MEDICARE | END 2023-07-29 12:03 | disposition home or self-care (01) | LOC: LAB.S 12:02 | PROVIDERS: ATTEND Internal Medicine | DX: Z51.81 Encounter for therapeutic drug level monitoring (principal); Z79.01 Long term (current) use of anticoagulants; I48.91 Unspecified atrial fibrillation | CPT/HCPCS: 36415; 36416; 85025; 85610 ==

== ENCOUNTER 2023-08-19 13:42 | Outpatient (CLI) | payer MEDICARE | END 2023-08-19 13:43 | disposition home or self-care (01) | LOC: LAB.S 13:42 | PROVIDERS: ATTEND Internal Medicine | DX: Z51.81 Encounter for therapeutic drug level monitoring (principal); Z79.01 Long term (current) use of anticoagulants; I48.91 Unspecified atrial fibrillation | CPT/HCPCS: 36416; 85610; 87070 ==

== ENCOUNTER 2023-09-30 09:57 | Outpatient (CLI) | payer MEDICARE | END 2023-09-30 09:58 | disposition home or self-care (01) | LOC: LAB.S 09:57 | PROVIDERS: ATTEND Internal Medicine | DX: Z79.01 Long term (current) use of anticoagulants (principal); Z51.81 Encounter for therapeutic drug level monitoring; I48.91 Unspecified atrial fibrillation | CPT/HCPCS: 36415; 36416; 85025; 85610 ==

== ENCOUNTER 2023-11-05 10:18 | Outpatient (CLI) | payer MEDICARE | END 2023-11-05 10:19 | disposition home or self-care (01) | LOC: LAB.S 10:18 | PROVIDERS: ATTEND Internal Medicine | DX: Z51.81 Encounter for therapeutic drug level monitoring (principal); Z79.01 Long term (current) use of anticoagulants; I48.91 Unspecified atrial fibrillation | CPT/HCPCS: 36416; 85610 ==

== ENCOUNTER 2023-11-26 10:36 | Outpatient (CLI) | payer MEDICARE | END 2023-11-26 10:37 | disposition home or self-care (01) | LOC: LAB.S 10:36 | PROVIDERS: ATTEND Internal Medicine | DX: Z51.81 Encounter for therapeutic drug level monitoring (principal); Z79.01 Long term (current) use of anticoagulants; I48.91 Unspecified atrial fibrillation | CPT/HCPCS: 36416; 85610 ==

== ENCOUNTER 2023-12-24 10:54 | Outpatient (CLI) | payer MEDICARE | END 2023-12-24 10:55 | disposition home or self-care (01) | LOC: LAB.S 10:54 | PROVIDERS: ATTEND Internal Medicine | DX: Z51.81 Encounter for therapeutic drug level monitoring (principal); I48.91 Unspecified atrial fibrillation; Z79.01 Long term (current) use of anticoagulants | CPT/HCPCS: 36416; 85610 ==

== ENCOUNTER 2024-01-09 08:44 | Outpatient (CLI) | payer MEDICARE | END 2024-01-09 08:45 | disposition home or self-care (01) | LOC: LAB.S 08:44 | PROVIDERS: ATTEND Internal Medicine | DX: I48.91 Unspecified atrial fibrillation (principal); Z51.81 Encounter for therapeutic drug level monitoring; Z79.01 Long term (current) use of anticoagulants | CPT/HCPCS: 36416; 85610 ==

== ENCOUNTER 2024-02-17 07:11 | Emergency (ER) | payer MEDICARE ==
[2024-02-17] MEDS: SODIUM CHLORIDE 0.9% 1,000 ML IV STA (07:35)
[2024-02-17] MEDS: ONDANSETRON 4 MG/2 ML VIAL IVP STA (07:35)
[2024-02-17 07:45] LABS: BASOPHILS # (AUTO) 0.1 10^3/uL (0.0-0.1); BASOPHILS % (AUTO) 0.4 %; EOSINOPHILS # (AUTO) 0.1 10^3/uL (0.0-0.7); EOSINOPHILS % (AUTO) 0.4 %; HGB - HEMOGLOBIN 14.9 g/dL (12.0-16.0); LYMPHOCYTES # (AUTO) 1.3 10^3/uL (1.5-3.5); MEAN CORPUSCULAR HEMOGLOBIN 29.7 pg (27.0-31.0); MEAN CORPUSCULAR HGB CONC 33.9 g/dL (32.0-36.0); MEAN CORPUSCULAR VOLUME 87.6 fL (81.0-99.0); MONOCYTES # (AUTO) 0.5 10^3/uL (0.0-1.0); MONOCYTES % (AUTO) 4.5 %; NEUTROPHILS # (AUTO) 10.1 10^3/uL (1.5-6.6); NEUTROPHILS % (AUTO) 83.4 %; PLT - PLATELET COUNT 215 10^3/uL (130-450); RED BLOOD COUNT 5.02 10^6/uL (4.20-5.40); RED CELL DISTRIBUTION WIDTH 12.9 % (12.0-15.0); WHITE BLOOD COUNT 12.1 x10^3/uL (4.8-10.8)
[2024-02-17] MEDS: ASPIRIN CHEW 81 MG TABLET PO STA (07:47)
[2024-02-17 07:59] LABS: ALBUMIN 3.9 g/dL (3.2-5.5); ALBUMIN/GLOBULIN RATIO 1.3 (1.0-2.2); BILIRUBIN,TOTAL 0.9 mg/dL (0.2-1.0); CALCIUM 9.2 mg/dL (8.5-10.3); CREATININE 1.3 mg/dL (0.6-1.3); POTASSIUM 4.1 mmol/L (3.5-4.5)
[2024-02-17 08:05] LABS: TROPONIN I HIGH SENSITIVITY 6.5 ng/L (2.3-14.8)
--- NOTE | 2024-02-17 08:40 | ED Physician Documentation ---
PD HPI CHEST PAIN - Stated complaint Stated Complaint: CHEST PX,NAUSEA - Chief complaint Chief Complaint: Cardiac - History obtained from History obtained from: Patient, Family - Additional information Additional information: The patient comes to the emergency department with chief complaint of back pain and chest pain that started around 1700 yesterday. Her granddaughter states she has been having some trouble with back pain around her scapular area for the last couple of days and patient states that last night seem to get a bit worse. She felt it wrapping around into her chest around the same time. She states it seems to be worse on the right, down near the tip of the scapula. The chest pain is also worse on the right. She denies any shortness of breath, diaphoresis, or lightheadedness, but does admit to some nausea without vomiting. No dyspnea on exertion or worsening of chest pain on exertion. The patient states that her back pain has gotten better when she applies heat or her granddaughter gives her back rub. She states that the pain seem to be getting a bit worse throughout the course of the night, but then she got in the shower and the hot water made it feel much better. When she went to bed, she applied a heat pack to try to keep the effect of the shower going and this was somewhat helpful but that she still was not able to get much sleep, due to the discomfort. The patient has a history of coronary artery disease. She had stents placed remotely and then in 2018, had a triple bypass. She follows with Dr. Castaneda of cardiology, who is based in [place] but comes to [place] once a month. She states she is overdue for an appointment with him. She has not had any further issues with coronary artery disease since her bypass. She had a brief episode of A-fib which is now resolved. PD PAST MEDICAL HISTORY - Past Medical History Past Medical History: Yes Cardiovascular: [place], Atrial fibrillation - Past Surgical History Past Surgical History: Yes Cardiovascular: CABG - Present Medications Home Medications: Ambulatory Orders Medication Instructions Recorded Confirmed HYDROcod/ACETAM 5/325 [[place] 5/325] 1 - 2 tablet PO Q6H PRN #14 tablet 02/17/24 Ondansetron Odt [Zofran] 4 mg TL Q6H PRN #20 tablet 02/17/24 metFORMIN [Glucophage] 500 mg PO BIDWM #120 tablet 02/17/24 - Allergies Allergies/Adverse Reactions: Allergies Allergy/AdvReac Type Severity Reaction Status Date / Time No Known Drug Allergies Allergy Verified 02/17/24 07:51 - Social History Does the pt smoke?: No Smoking Status: Never smoker Does the pt drink ETOH?: No Does the pt have substance abuse?: No - POLST Patient has POLST: No PD ED PE NORMAL - Vitals Vital signs reviewed: Yes - General General: Alert and oriented X 3, No acute distress, Well developed/nourished - HEENT HEENT: Atraumatic, PERRL, EOMI, Moist mucous membranes - Neck Neck: Supple, no meningeal sign - Cardiac Cardiac: RRR, No murmur - Respiratory Respiratory: No respiratory distress, Clear bilaterally - Abdomen Abdomen: Soft, Non tender, Non distended - Back Back: No spinal TTP, Other (TTP BL intrascapular musculature, worse on R) - Derm Derm: Normal color, Warm and dry, No rash - Extremities Extremities: No deformity - Neuro Neuro: Other (Alert, grossly oriented.) - Psych Psych: Normal mood, Normal affect Results - Vitals Vitals: Oxygen O2 Source Room air - Labs Labs: Laboratory Tests 02/17/24 02/17/24 02/17/24 07:30 07:30 07:30 WBC 12.1 H RBC 5.02 Hgb 14.9 Hct 44.0 MCV 87.6 MCH 29.7 MCHC 33.9 RDW 12.9 Plt Count 215 MPV 11.0 H Neut # (Auto) 10.1 H Lymph # (Auto) 1.3 L [place] # (Auto) 0.5 Eos # (Auto) 0.1 Baso # (Auto) 0.1 Absolute Nucleated RBC 0.00 Nucleated RBC % 0.0 Sodium 130 L Potassium 4.1 Chloride 97 L Carbon Dioxide 26 Anion Gap 7.0 BUN 22 H Creatinine 1.3 Estimated GFR (MDRD) 40 L Glucose 358 H Estimat Average Glucose 318 H Hemoglobin A1c % 12.7 H Calcium 9.2 Total Bilirubin 0.9 AST 10 ALT 15 Alkaline Phosphatase 94 Troponin I High Sens 6.5 Total Protein 7.0 Albumin 3.9 Globulin 3.1 Albumin/Globulin Ratio 1.3 Lipase 23 02/17/24 09:45 WBC RBC Hgb Hct MCV MCH MCHC RDW Plt Count MPV Neut # (Auto) Lymph # (Auto) [place] # (Auto) Eos # (Auto) Baso # (Auto) Absolute Nucleated RBC Nucleated RBC % Sodium Potassium Chloride Carbon Dioxide Anion Gap BUN Creatinine Estimated GFR (MDRD) Glucose Estimat Average Glucose Hemoglobin A1c % Calcium Total Bilirubin AST ALT Alkaline Phosphatase Troponin I High Sens 6.9 Total Protein Albumin Globulin Albumin/Globulin Ratio Lipase - Rads (name of study) CXR Relevant Findings:: Final report received, See rad report (neg) PD Medical Decision Making - ED course Complexity details: reviewed results, re-evaluated patient, considered differential, d/w patient ED course: The pt had pain that sounded musculoskeletal in nature, but also was known to have CAD, and had a number of risk factors for ongoing CAD. The pt was worked up with CXR, EKG, and labs, including serial troponins. CXR was negative, and EKG showed no concerning findings. Troponins were both negative, and without significant change, but glucose was in the 300's. I added a hemoglobin A1C. I d/w pt and family that even though they have noted some fluctuation of the blood sugars down to normal, I am concerned that the pt has been running high most of the time. I have advised the pt to keep track of her FBS each day, as well as a midday measurement, preferably a couple of hours after lunch, to get a sense of how they are running. If the sugars are regularly above 150, she should start the metformin I have prescribed. I have also emphasized the extreme importance of getting established with primary care, as soon as possible. I have also advised pt and family to set up a follow-up appointment with cardiology as soon as possible. We have discussed the usual indications for return. Departure - Departure Disposition: 01 Home, Self Care Clinical Impression: Back pain Qualifiers: Back pain location: thoracic back pain Chronicity: acute Back pain laterality: bilateral Qualified Code(s): M54.6 - Pain in thoracic spine Chest pain Qualifiers: Chest pain type: unspecified Qualified Code(s): R07.9 - Chest pain, unspecified Condition: Stable Instructions: ED Chest Pain Atypical Unkn Cause Comments: The pain in the back and the chest pain are most likely related. Based on the symptoms you are describing and the physical exam findings, I suspect your pain is musculoskeletal in nature. Your chest x-ray shows mild enlargement of your heart but otherwise looks fairly good. There is no evidence of a tumor or other concerning finding. Both sets of cardiac enzymes also are normal. Your EKG does not show any concerning findings. Your blood sugar is elevated at 358 and a hemoglobin A1c to look at chronic trends is pending at this time. It is really important that you pursue getting set up with a primary doctor to address your blood sugar, as this can create more problems with your heart as well as other serious organ issues. For now, we will hold off on starting medication because we do not know what the trends are. However, it is advisable that you get a glucometer to have at home so that you can test your blood sugar and see how it is running on a more daily basis. Please call your electrologist office and schedule the next available appointment for follow-up. For now, it does not appear that your chest pain is related to your heart. However, you are at high risk for another heart attack and it is important to have close follow-up. If you develop severe chest pain with shortness of breath, nausea, sweating, lightheadedness, or any other concerning symptoms, please return to the emergency department that delay. Forms: PCP List Discharge Date/Time: 02/17/24 11:54
--- NOTE | 2024-02-17 09:22 | XRAY Report ---
PROCEDURE: Chest 1V INDICATIONS: chest pain TECHNIQUE: One view of the chest was acquired. COMPARISON: None. FINDINGS: Surgical changes and devices: Remote CABG. Lungs and pleura: No pleural effusions or pneumothorax. Lungs are clear. Mediastinum: Mediastinal contours appear normal. Mild cardiomegaly. Bones and chest wall: No suspicious bony lesions. Overlying soft tissues appear unremarkable. IMPRESSION: 1 cardiomegaly. Remote CABG. No acute infiltrates. Reviewed by: Mitchell Fung MD on 02/17/2024 9:20 AM PDT Approved by: Mitchell Fung MD on 02/17/2024 9:20 AM PDT Station ID: [id number]
[2024-02-17] MEDS: metFORMIN 500 MG TABLET PO STA (11:52)
[2024-02-17 12:12] VITALS: BP 182/57; O2SAT 95
[2024-02-17 13:09] LABS: ESTIMATED AVERAGE GLUCOSE 318 mg/dL (70-100); HEMOGLOBIN A1c% 12.7 % (4.27-6.07)
== END 2024-02-17 11:54 | disposition home or self-care (01) ==
LOC: ED 07:11
DX: R07.9 Chest pain, unspecified (principal); M54.6 Pain in thoracic spine; R73.9 Hyperglycemia, unspecified
CPT/HCPCS: 36415; 80053; 83036; 83690; 84484; 85025; 93005; 96361; 96374; 99284

== ENCOUNTER 2024-02-17 14:30 | Outpatient (CLI) | payer MEDICARE | END 2024-02-17 23:59 | disposition critical access hospital (66) | LOC: EMS 14:30 | DX: R07.89 Other chest pain (principal); R11.2 Nausea with vomiting, unspecified; M54.6 Pain in thoracic spine | CPT/HCPCS: A0425; A0427 ==

== ENCOUNTER 2024-02-17 14:57 | Emergency (ER) | payer MEDICARE ==
--- NOTE | 2024-02-17 16:58 | ED Physician Documentation ---
PD HPI CHEST PAIN - Stated complaint Stated Complaint: CP - Chief complaint Chief Complaint: Cardiac - History obtained from History obtained from: Patient - Additional information Additional information: The patient returns to the emergency department chief complaint of chest pain, worse with deep breaths, and nausea. The patient was given Toradol and route according to the medics and has been feeling better since. She states she has no pain at all. She was also given Zofran and states her nausea is completely resolved. She denies any air hunger but just states that it hurt to take a deep breath. The patient was just seen here a few hours before for back pain that seem to radiate to the chest. She had a full workup that was negative other than uncontrolled diabetes. Hemoglobin A1c has been ordered at that time and was pending at the time of her discharge. The patient currently has no complaints whatsoever. PD PAST MEDICAL HISTORY - Past Medical History Past Medical History: Yes Cardiovascular: [place], Atrial fibrillation - Past Surgical History Past Surgical History: Yes Cardiovascular: CABG - Present Medications Home Medications: Ambulatory Orders Medication Instructions Recorded Confirmed HYDROcod/ACETAM 5/325 [[place] 5/325] 1 - 2 tablet PO Q6H PRN #14 tablet 02/17/24 Ondansetron Odt [Zofran] 4 mg TL Q6H PRN #20 tablet 02/17/24 metFORMIN [Glucophage] 500 mg PO BIDWM #120 tablet 02/17/24 - Allergies Allergies/Adverse Reactions: Allergies Allergy/AdvReac Type Severity Reaction Status Date / Time No Known Drug Allergies Allergy Verified 02/17/24 07:51 - Social History Does the pt smoke?: No Smoking Status: Never smoker Does the pt drink ETOH?: No Does the pt have substance abuse?: No - POLST Patient has POLST: No PD ED PE NORMAL - Vitals Vital signs reviewed: Yes - General General: Alert and oriented X 3, No acute distress, Well developed/nourished - HEENT HEENT: Atraumatic, PERRL, EOMI, Moist mucous membranes - Neck Neck: Supple, no meningeal sign - Cardiac Cardiac: RRR, No murmur - Respiratory Respiratory: No respiratory distress, Clear bilaterally - Abdomen Abdomen: Soft, Non tender, Non distended - Derm Derm: Normal color, Warm and dry, No rash - Extremities Extremities: No deformity, No edema, No calf tenderness / cord - Neuro Neuro: Other (Alert and appropriate; grossly intact.) - Psych Psych: Normal mood, Normal affect Results - Vitals Vitals: Vital Signs - 24 hr 02/17/24 02/17/24 02/17/24 15:01 15:03 15:05 Temperature 36.3 C L Heart Rate 75 Respiratory 16 Rate Blood Pressure 151/65 H Blood Pressure 151/65 H [Right] O2 Saturation 94 02/17/24 02/17/24 17:03 17:16 Temperature Heart Rate 89 72 Respiratory 16 16 Rate Blood Pressure 144/89 H 132/78 H Blood Pressure [Right] O2 Saturation 98 99 Oxygen O2 Source Room air - EKG (time done) 1507 EKG releavant findings:: EKG personally interpreted by author of this note. Relevant findings are: Rate: Rate (enter#) (75) Rhythm: NSR [place]: Normal Intervals: Normal [place] QRS: Normal Ischemia: Non specific changes Compare to prior EKG: Unchanged from prior EKG Computer interpretation: Agree with computer PD Medical Decision Making - ED course Complexity details: reviewed old records, reviewed results, re-evaluated patient, considered differential, d/w patient, d/w family ED course: The patient was describing chest pain that was worse with deep breaths. She was reporting no air hunger and had pain that was easily resolved with Toradol. Her nausea was completely better after Zofran. Furthermore, the patient had had musculoskeletal sounding pain that she presented for earlier in the day with a completely negative chest pain workup. I did attempt to get a hold of her project financial analyst, Dr. Werner Castaneda, but was told that he was out of the office. My main concern is that this patient has fairly expedited follow-up, due to her history of coronary artery disease and being overdue for cardiology follow-up, plus the repeated visits for chest pain, albeit musculoskeletal sounding. The patient was scheduled for an appointment at 11:00 on Friday, February 22. I discussed this with the patient and her daughter, who is a nurse here, and they were agreeable to the plan. The patient is still chest pain-free and nausea free. I have discussed with her the need to start metformin, due to her elevated hemoglobin A1c of 12.7, which is more than twice the upper limit of normal. I have also emphasized to them the extreme importance of the patient getting established with a primary care physician as soon as possible. The [facility] clinic is on duty for emergency department follow-ups for this week and I have given the patient and daughter their phone number. We have discussed the usual indications for return including immediate return for development of severe chest pain with air hunger, nausea, sweating, lightheadedness, and/or any other concerning symptoms. Departure - Departure Disposition: 01 Home, Self Care Clinical Impression: Chest wall pain Condition: Stable Instructions: ED Chest Pain Atypical Unkn Cause Prescriptions: metFORMIN [Glucophage] 500 mg PO BIDWM #120 tablet HYDROcod/ACETAM 5/325 [[place] 5/325] 1 - 2 tablet PO Q6H PRN #14 tablet PRN Reason: Pain Ondansetron Odt [Zofran] 4 mg TL Q6H PRN #20 tablet PRN Reason: Nausea / Vomiting Comments: Your EKG still looks good. A full cardiac workup earlier today was negative. Dr. Castaneda was not available to talk this evening, but you have been given an appointment for February 22Friday, at 11:00 AM. Please be sure you keep this appointment to follow-up on the symptoms she has been having. There is no evidence of a heart attack at this point in time. However, if you begin to have chest pain that is not exhibiting worsening with deep breaths, and any other concerning symptoms, please return to the emergency department immediately. Your hemoglobin A1c was 12.7 today. This is very high, in fact twice the upper limit of normal. This means that your blood sugar has been running too high for a long time. It is exceedingly important that you get established with a primary care physician as soon as possible. The clinic on duty for emergency department follow-ups this week is the [facility]. Their number is [phone]. Please give them a call first thing in the morning to schedule follow-up. Forms: PCP List Discharge Date/Time: 02/17/24 17:16
[2024-02-17 17:20] VITALS: BP 132/78; O2SAT 99
== END 2024-02-17 17:16 | disposition home or self-care (01) ==
LOC: EDUNIT# → ED 14:57
DX: R07.89 Other chest pain (principal); E11.65 Type 2 diabetes mellitus with hyperglycemia; Z79.84 Long term (current) use of oral hypoglycemic drugs; R07.9 Chest pain, unspecified; M54.6 Pain in thoracic spine
CPT/HCPCS: 36415; 71045; 80053; 83036; 83690; 84484; 85025; 93005; 96361; 96374; 99283; 99284; A9270

== ENCOUNTER 2024-02-27 10:24 | Outpatient (CLI) | payer MEDICARE | END 2024-02-27 10:25 | disposition home or self-care (01) | LOC: LAB.S 10:24 | PROVIDERS: ATTEND Internal Medicine | DX: Z51.81 Encounter for therapeutic drug level monitoring (principal); Z79.01 Long term (current) use of anticoagulants; I48.91 Unspecified atrial fibrillation | CPT/HCPCS: 36416; 85610 ==